=== PATIENT | female | born 1965 | race Caucasian/White ===

== ENCOUNTER 2021-07-10 17:45 | Observation (INO) | payer OTHER ==
[~2021-07-10] VITALS: Ht 170.2 cm; Wt 104.8 kg
[2021-07-11 09:24] VITALS: BP 107/61
--- NOTE | 2021-07-11 10:44 | NUR ---
Admission note on behalf of Maryan Tanner RN: "DEACON CAME INTO THE [facility] AT 2345 FROM ED ON A WHELLCHAIR. SHE WAS ADMITTED INTO 524A UNDER THE CARE OF DR. LO. SHE IS ALERT AND ORIENTED WITH SOME FORGETFULNESS. AMBULATES WITH AND SHE DENIES PAINS,SI/AVH/HI. LUNGS ARE CLEAR BS ACTIVE X4 QUADS. SHE IS CONTININIET OF BOWEL AND BLADDER. CALL TO THE HOSPITALIST MICH BONE FOR CONSULT AND GERALD FOR MEDICATION VERIFICATION. ZAMZAM IS RESTING CALM IN BED AT THE TIME. vITAL SIGN STABLE AT 96.3, 96% SAT, 74, 18, 120/74. WT @ 226LBS. SHE IS ON REGULAR DIET. REASOM FOR ADMISSION IS PATINAOMI GOING INTO PEOPLE HOUSES AND ALSO AGGRESSIVE. BED ISLOW, LOCKED AND AKARMED. Q12 MINUTES CHECKS ONGOING CONTUNE CARE."
[2021-07-11 13:44] LABS: CHOLESTEROL 225 mg/dL (<200); HDL CHOLESTEROL 49 mg/dL (>40); LDL CHOLESTEROL 129 mg/dL (<100); TC:HDL 4.6 Ratio (Not establshd); TRIGLYCERIDE 237 mg/dL (<150); VLDL 47 mg/dL (<40)
--- NOTE | 2021-07-11 16:47 | NUR ---
Meeting with patient and Dr. Montes. Patient had been in her room but willingly came to the office with the SW and Dr. Montes. Patient had been susan retirement in [place] due to wandering, combativeness, and entering random residences. The patient is not oriented to day and time. When patient was asked what month we were in, she responded with December. The patient remained adamant that it was December even though she was told it was . The patient reports being born in [place], [place]. When asked if she has brothers and sisters, she responded "not really".
--- NOTE | 2021-07-11 18:45 | NUR ---
PT ALERT AND ORIENTED TIMES FOUR. VSS. PT DENIES SI/HI/AH/VH/PAIN/SOA. PT INTERACTS WELLWITH STAFF LITTLE INTERACTIONS WITH PEERS. PT TOLERATES MEDS AND MEALS. PT UP AB JERED WITH STEADY GAIT. WILL COINTINUE TO MONITOR.
[2021-07-11 19:26] VITALS: BP 124/69
--- NOTE | 2021-07-12 00:36 | NUR ---
PATIENT SECLUSIVE STAYING TO HER ROOM. SHE IS AAOX4. PATIENT STATED THAT SHE DID NOT AGREE TO TAKE ANY MEDICATIONS BUT STATED THAT SHE WOULD FOR NOW. WHEN XITING THE ROOM THE PATIENT BEGAN HAVING A CONVERSATION WITH SOMEBODY SHE PRECEIVES IS PRESENT IN HER ROOM. SHE STATED THAT THEY WERE SUPPOSED TO MAKE SURE THAT SHE DID NOT HAVE PROBLEMS WITH MEDICATIONS. PATIENT IS ABLE TO AMBULATE UNDER HER OWN POWER. VSS. NO DISTRESS NOTED. ALL SAFETY PRECAUTIONS IN PLACE. WILL CONTINUE TO MONITOR FOR CHANGES IN PATIENT STATUS.
[2021-07-12 05:07] LABS: GLYCOHEMOGLOBIN (HGB A1C) 6.4 % (4.8-5.6)
[2021-07-12 09:39] VITALS: BP 113/67
[2021-07-12 09:42] VITALS: BP 113/72
--- NOTE | 2021-07-12 10:19 | NUR ---
Assess due to new admit to [facility] with dementia/behaviors. Hx schizophrenia, bipolar, htn. Attempt to visit this am, pt asleep in room, under covers so could not visualize wt status. Has 2 wts documented 180 lb vs 226 lb. Refused first meal yesterday, then 90% lunch. Lipid levels elevated, and borderline high A1C 6.4, no hx diabetes. On lipitor. Follow intake trends and wts weekly, otherwise presents low nutrition risk
--- NOTE | 2021-07-12 16:36 | NUR ---
PT ASSESSED AT START OF SHIFT. NO C/O S/I OR H/I. HAS BEEN CALM AND COOPERATIVE W/ CARES ALL SHIFT UNTIL NOW WHEN SHE WENT TO THE DAY ROOM AND WANTED TO HAVE COFFEE BUT WAS TOLD SHE HAD TO WAIT UNTIL DINNER. PT BECAME VERY UPSET YELLING LOUDLY, CALLING STAFF NAMES. ESCORTED BACK TO HER ROOM AND SHE WAS STILL UPSET BUT CALMED DOWN AFTER A FEW MINUTES.
[2021-07-12 19:21] VITALS: BP 105/60
--- NOTE | 2021-07-13 05:26 | NUR ---
Assumed care of pt at 1900. Pt calm et cooperative this shift. Took medications whole without difficulty. Ambulates ad jose d with steady gait. Isolated in room most of shift. VSWNL. Health assessment with no abnormalities noted at present time. Denies SI/HI at present time. Currently resting in bed with eyes closed. Will continue to monitor per unit protocol.
[2021-07-13 10:34] VITALS: BP 100/80
[2021-07-13 14:01] LABS: URINE BILIRUBIN NEGATIVE (Negative); URINE BLOOD TRACE (Negative); URINE CLARITY SL CLOUDY; URINE COLOR YELLOW; URINE GLUCOSE-RANDOM* NEGATIVE (Negative); URINE KETONES NEGATIVE (Negative); URINE NITRITE-REFLEX NEGATIVE (Negative); URINE PROTEIN (DIPSTICK) NEGATIVE (Negative); URINE SPECIFIC GRAVITY 1.015 (1.005-1.035); URINE UROBILINOGEN 0.2 E.U./dl (0.2-1.0)
[2021-07-13 14:14] LABS: URINE LEUKOCYTES-REFLEX 3+ (Negative)
[2021-07-13 14:53] LABS: SQUAMOUS >10 Many /LPF (0-3); URINE WBC-REFLEX >25 Many /HPF (0-5)
[2021-07-13 14:54] LABS: CASTS None Seen /LPF (None Seen); CRYSTALS None Seen /LPF (None Seen); URINE RBC 1-2 Rare /HPF (NONE SEEN)
--- NOTE | 2021-07-13 16:27 | NUR ---
Patient is alert and oriented x2, sat in the dining room watching TV, attend group, good appetite. patient walk with no walker or assisting device. Void per toilet, had a bm yesterday, tylenol given for knee pain. patient is calm, cooperative and pleaseant.
[2021-07-13 19:46] VITALS: BP 117/52
--- NOTE | 2021-07-14 05:09 | NUR ---
Assumed care of pt at 1900. Pt calm et cooperative this shift. Took medications whole without difficulty. Ambulates the halls ad jose d with steady gait. Isolated in room most of shift. VSWNL. Health assessment with no abnormalities noted at present time. Denies SI/HI at present time. Currently resting in bed with eyes closed. Will continue to monitor per unit protocol.
--- NOTE | 2021-07-14 08:28 | NUR ---
RESUMMED CARE FROM OVERNIGHT SHIFT THIS AM, PATIENT SITTING IN DAYROOM QUIET. PATIENT ALERT ORIENTED TIMES 3-4 PATIENT ATE BREAKFAST TOOK MEDICATION WITHOUT INCIDENCE. PATIENT DENIES SI/HI/AH/VH AT PRESENT PATIENTS ABDOMEN SOFT BOWEL SOUNDS PRESENT. PATIENT DENIES DEPRESSION OR ANXIETY PATIENTS AFFECT FLAT DOES NOT INTERACT WITH OTHER PATIENTS. WILL CONTINUE TO MONUIITOR PATIENT FOR SAFETY AND BEHAVIORS.
[2021-07-14 09:02] VITALS: BP 105/72
[2021-07-14 09:20] VITALS: BP 92/56
--- NOTE | 2021-07-14 09:26 | H ---
[facility] [place] [place] [address] HISTORY AND PHYSICAL Name: GLADYS BAHENA Room #: 524A-A ADM IN M.R.#: [id number] Admission: 07/10/21 Attend Phys: Adam Montes DO Discharge: Date of : 61 Report #: [id number] THIS REPORT FOR: cc: NO FAMILY PHYSICIAN or PCP NO FAMILY PHYSICIAN or PCP Adam Montes DO ~ DATE OF SERVICE: 07/11/2021 INPATIENT PSYCHIATRIC EVALUATION ATTENDING PSYCHIATRIST: Adam Montes DO. MEDICAL CONSULTANTS: Anita Castillo APRN and Jaun Dao MD and his hospitalist team. SOURCES OF INFORMATION: Screen from [facility], records from Emergency Room in [facility] in [place], [place], interview with the patient, collateral from durable power of goodwill representative, Martir Flaherty. HISTORY OF PRESENT ILLNESS: This is a 56-year-old female, single, but lives with a gentleman for the last 15 years or so. The patient was sent out from [facility] in [place]. Apparently, she is at the Emergency Room there at [facility], but had recently been in custody at the [facility] [place]. Per report, the patient has a history of Alzheimer's dementia, so brought into custody due to disorientation, agitation, combativeness, and engage in unsafe behaviors, wandering and entering residences not belonging to her. At [place] screening She is oriented x [address]. Her poor eye contact was observed, is having difficulty with recall and monotone. She had actively having features of word repetition. She said the screener did not want her to strain, rest up and eat well. "I do not know how I got here, I do not think they want me in the area, all I was trying to do was go somewhere where I can fit in. I live in [address] and my house has roof off of it and the house I ended up out with the wrong house. 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 She was unable to recall her age. She was in [facility] in 2019. At that time, she was not diagnosed with schizophrenia with a schizoaffective picture. Apparently, her caregiver and DPOA, Martir Flaherty, is a lot for her. 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 She is not currently in services with [facility] she [facility]. The patient denied medical history. ALLERGIES ARE TO CODEINE. [facility] screen diagnosis was schizoaffective disorder, bipolar type. Evidently, she was seen again at [facility] [place] [facility] and she believes it was [address] [address] HISTORY AND PHYSICAL Name: GLADYS BAHENA Room #: 524A-A ADM IN ..#: [id number] Admission: 07/10/21 Attend Phys: Adma Montes, Discharge: Date of : 61 Report #: [id number] and she is in a [facility] apartment building. Then, states Janet is the president, but the Clint could have his inauguration soon. Evidently, she was combative during transfer to hospital, but the patient had been pleasantly confused since arrival. From ER notes, apparently she has been in custody for several weeks despite behavior, confusion and transported to the medical facility. REVIEW OF SYSTEMS: CONSTITUTIONAL: Negative. EYES: Negative. EARS, NOSE, THROAT: Negative. RESPIRATORY: Negative. CARDIOVASCULAR: Negative. GASTROINTESTINAL: Negative. GENITOURINARY: Negative. HEME/LYMPH: Negative. ENDOCRINE: Negative. IMMUNOLOGIC: Negative. MUSCULOSKELETAL: Negative. INTEGUMENTARY: Negative. NEUROLOGIC: Confusion. Psych meds noted to be 50 mg of Seroquel in the afternoon and 50 mg of Seroquel in the morning, metoprolol succinate 100 mg extended release daily and Effexor extended release 75 mg daily. PHYSICAL EXAMINATION: Grossly negative. LABORATORY DATA: From [facility], white count 8.2, H and H 14.3 and 42.1, platelet count 290. Urinalysis showed trace blood, 1+ leukocyte esterase, I do not see any bacteria mentioned. Electrolytes: Sodium 137, potassium 4.4, chloride 103, bicarbonate 29.5, osmolality 274, BUN 11, creatinine 0.73, glucose 117, calcium 9.0, albumin 3.2, total protein 7.0, alkaline phosphatase 190 which is high, AST 26, ALT 52, total bilirubin 0.1. EGFR 82. Acetaminophen negative. Salicylate was 2.0, which is low. Alcohol negative. Urine drug screen negative. Weight 113.6 kilos, BMI 42.4. test negative. SARS-CoV-2 PCR negative. Here at [facility], review of additional labs, triglycerides 237, cholesterol 225, LDL 129, HDL 49. COVID-19 test was negative. PHYSICAL EXAMINATION: VITAL SIGNS: Today, temperature 37.1, pulse 93, respirations 20, BP 124/69. Her weight was 102.512 kilos, BMI 35.4. GENERAL: Well-developed, unkempt female, in shirt and scrubs. MENTAL STATUS EXAMINATION: Well-developed, somewhat ill-appearing, older than [facility] [address] [place] [address] HISTORY AND PHYSICAL Name: GLADYS BAHENA Room #: 524A-A ADM IN ..#: [id number] Admission: 07/10/21 Attend Phys: Adam Montes DO Discharge: Date of : 61 Report #: [id number] stated age appearing female. Attention easily distractible. Concentration poor. Speech normal in rate. Thought process: Linear and goal directed. Thought content, very disorganized, difficult to obtain ____ particular subject matter. She did want to hear the name, Martir and did not regard him as a support person. It almost sounded like an nemesis. Memory not formally tested, suspect impaired. Mood and affect constricted, congruent. Denied SI, HI. Denied auditory or visual type hallucinations. Denied helplessness, hopelessness. Insight, judgment impaired. Fund of knowledge well below average. FORMULATION: A 56-year-old female transferred from [facility] following [place]. DIAGNOSES: Schizoaffective disorder, bipolar type, recurrent by history, suspected underlying major neurocognitive disorder. The patient's medical morbidities include possible UTI, Keflex started; hypertension; GI prophylaxis. PLAN: The patient is incapacitated. Her DPOA is enacted due to severe degree of psychosis, cognitive impairment. Anyways, in addition, the patient's incapacitation following she is admitted to Geriatric Psychiatry, evaluated, stabilized. Regarding her medication regimen, I increased her Seroquel to 125 mg at bedtime. I scheduled Seroquel 50 mg at 9:00 a.m. and 3:00 p.m. I discontinued venlafaxine. She is on metoprolol succinate 100 mg daily and cephalexin 500 mg b.i.d. Urine culture and sensitivity has been ordered. ESTIMATED LENGTH OF STAY: 10-14 days. We will evaluate and stabilize. Hospitalist is consulted. STRENGTHS: She is insured as a DPOA. WE[place]NESSES[place] a placement. I should add I did speak to the DPOA today, he does not own a place. Length of mental illness, sounds like, at least actually more than a decade, at least 15-20 year range. Time spent on this case at least 45 minutes. <ELECTRONICALLY SIGNED> By: Adam Montes DO 07/14/21 0926 [id number] 05 Adam Montes DO /nt
--- NOTE | 2021-07-15 05:10 | NUR ---
Assumed care of pt at 1900. Pt calm et cooperative this shift. Took medications whole without difficulty. Ambulates the halls ad jose d with steady gait. Isolated in room most of shift. VSWNL. Health assessment with no abnormalities noted this shift. Denies SI/HI at present time. Currently resting in bed with eyes closed. Will continue to monitor per unit protocol.
[2021-07-15 07:35] VITALS: BP 106/59
[2021-07-15 08:45] VITALS: BP 106/59
--- NOTE | 2021-07-15 15:57 | NUR ---
Assumed pt care from overnight shift this am. Client was fussy and agitated during this time, and presented confused and disoriented. Client was reoriented to environment, and was oriented to person only at this time. Client presented with flight of ideas, with scattered thoughts and no coherency with thoughts, talking about several different theories she believed in which she was being monitored. Staff was unable to follow client's train of thought at this time, as client would continue to ramble, but would not make coherent statements despite redirection. Client stated to staff, "why are you asking me these questions- every day we have to answer if we're depression, hallucinating, or something like that- why do I have to answer this-give some variety in this- why don't you know the answer." Staff explained to pt that these questions were necessary to ask, Pt stated "well I'm not suicidal or trying to kill anyone" and started to ramble about people that were living by her, though staff could not make out context of delusion. Pt denied depression and anxiety once asked further. Denied pain, stating, "well I'm here, so I don't have pain." Pt lung sounds clear. Pt bowel sounds active. Last BM 07/15/21. Noted delusions continued despite direction. Pt de-escalated in group as pt started to shout in group. Voluntary room time used, as well as therapeutic communication. Pt results for covid testing came back positive. Providers Javi and Simon respectively notified and pt quarantined. New covid test done and sent to lab. Pt intially resistant, but staff able to convince pt after convincing pt and covid was not a conspiracy theory. Pt asked to stay in room several times during this shift due to isolation precautions. Pt took isolation cart, and put lunch tray on isolation cart, and wheeled it to staff, stating and yelling that she wanted new lunch. Pt de-escalated at this time and asked to return to room. Different dinner orders placed to help accomodate pt. No other concerns at this time. Awaiting covid testing results.
[2021-07-15 19:15] VITALS: BP 142/94
[2021-07-15 20:00] VITALS: BP 142/94
[2021-07-15 21:40] VITALS: BP 150/87
--- NOTE | 2021-07-16 01:54 | NUR ---
PATIENT WAS MOVED TO ROOM 361 ON 3W D/T POSITIVE COVID PCR RESULT X 2. DR Rai IS STILL GOING TO SEE PATIENT AND WAS TOLD NOT TO TRANSFER OR DC PATIENT IN COMPUTER D/T SHE IS STILL PSYCH PATIENT. PATIENT WAS A/0X1. SHE TOOK HER MEDS WHOLE WITH WATER. SHE DENIES PAIN. SHE WAS CALM AND COOPERATIVE. SHE WAS RESISTANT AT FIRST AND DID NOT WANT TO MOVE TO ANOTHER FLOOR BUT CALMED AND WENT PEACEFULLY. PATIENT HAS DISORGANIZED THINKING AND HARD TO UNDERSTAND WHEN SHE TALKS. THE SHAUN OF HER VOICE IS UP AND DOWN AND SOMETIMES SHE SPEEDS UP AND SLOWS DOWN. OCCASIONALLY SHE HAS PRESSURED SPEECH AND SOMETIMES SHE TALKS LIKE A LITTLE GIRL. HER THOUGHTS ARE DISORGANIZED AND HARD TO FOLLOW. PATIENT WAS TRANSPORTED TO 3W BY ALEKSANDRA YOUNG BY [facility] WITH A N95 MASK ON. TELEPHONE RN REPORT GIVEN OVER PHONE TO CASSIE CHEN. PATIENT TRANSFERRED AROUND 2200.
--- NOTE | 2021-07-16 05:36 | NUR ---
PT TRANSFERRED FROM [facility] AFTER 2 POSITIVE COVID PCR TESTS 07/15. PT IS ASYMPTOMATIC WITH EXCEPTION OF A SLIGHT OCCASIONAL COUGH. PT IS IN NO VISIBLE DISTRESS. ARRIVED TO ROOM 361 AROUND 2140. VSS, ON ROOM AIR. PT WITH DISORGANIZED THOUGHTS, A&O TO SELF AND KNOWS SHE IS IN THE HOSPITAL. PROVIDED WITH MAGAZINE AND NEWSPAPER TO READ PER PT REQUEST. PT FORGETS THAT SHE IS UNABLE TO COME OUT OF HER ROOM AT THIS TIME, BUT IS EASILY REDIRECTABLE. WILL CONTINUE TO OBSERVE FOR CHANGES.
[2021-07-16 08:02] VITALS: BP 94/60
[2021-07-16 12:33] LABS: HEMATOCRIT 37.4 % (37.0-47.0); HEMOGLOBIN 12.6 gm/dL (12.0-15.0); MCH 28.3 pg (26.0-34.0); MCHC 33.8 g/dL (28.0-37.0); MCV 83.9 fL (80.0-100.0); RBC 4.46 mil/uL (4.20-5.00); RDW 14.2 % (10.5-14.5)
[2021-07-16 12:49] LABS: ALBUMIN 2.8 g/dL (3.4-5.0); ANION GAP 8 mmol/L (7-16); BUN 11 mg/dL (7-18); CALCIUM 8.1 mg/dL (8.5-10.1); CHLORIDE 104 mmol/L (98-107); CO2 28 mmol/L (21-32); CREATININE 0.6 mg/dL (0.6-1.0); GLUCOSE 144 mg/dL (74-106); POTASSIUM 4.2 mmol/L (3.5-5.1); SGOT 23 U/L (15-37); SGPT 44 U/L (30-65); SODIUM 140 mmol/L (136-145); TOTAL BILIRUBIN < 0.1 mg/dL (0.2-1.0); TOTAL PROTEIN 5.8 g/dL (6.4-8.2)
--- NOTE | 2021-07-16 16:01 | NUR ---
CARE ASSUMED THIS AM, PT ALERT TO SELF, REDIRECTABLE. PT FOLLOWS COMMANDS AND HAS BEEN CALM MOST OF DAY. UP AD JERED TO BATHROOM. ON ROOM AIR, NO SIGNS OF DISTRESS. DENIES ANY NEEDS AT MOMENT, WILL CONTINUE TO MONITOR.
[2021-07-16 19:50] VITALS: BP 116/76
--- NOTE | 2021-07-17 05:18 | NUR ---
Patient is alert to self this shift. Patient is on enhanced precaustions. Patient is on neither oxygen/ tele at this time. Patient is continent of both bowel and bladder. Patient gets up adlib and is steady on her feet. Patient has no skin issues to report and no IV's at this time. Patient will continue to be monitored.
[2021-07-17 07:22] VITALS: BP 130/86
--- NOTE | 2021-07-17 08:44 | NUR ---
07/17/2021 - Family meeting for patient with DPOA (Martir Flaherty), Dr. Montes and MIKI. Dr. Montes reviewed the patient's level of need. Dr. Montes and the SW also explained to Martir that the patient has continuously stated that she does not want to return to him or the home. Martir reported that the patient does want to return. However, Martir became open to the patient going to a shelter as he is concerned that the patient will become too much for him to keep safe. Martir does not want the patient to continuously be hospitalized or put in correction for the behaviors she has demonstrated. Martir stated the patient was previously at a home in [facility] and that was a nice place. The SW will submit a referral for Medicaid. The SW and Dr. Montes will contact Martir tomorrow at 2:00pm so that Martir's son will be available to assist with processing information for the DPOA.
--- NOTE | 2021-07-17 08:52 | NUR ---
Email for Medicaid Screening sent to [employer].
--- NOTE | 2021-07-17 11:32 | NUR ---
SW reviewed chart and spoke with nursing and hospitalist. Pt was transferred to from [facility] unit on Friday, 07/15. Pt had two positive COVID PCR tests. Pt placed in Enhanced Isolation. Pt is afebrile and on room air. Pt with hx Alzheimer's, bipolar and schizophrenia. Pt was transferred to [facility] from [facility] in [place], [place]. Pt has been living with her DPOA Martir Flaherty. [facility] SW team is in communication with Martir regarding discharge plan. Pt will need placement. SW is available to assist as needed.
--- NOTE | 2021-07-17 12:21 | NUR ---
PT HAD A SHOWER TODAY, NEW CLOTHES OFFERED TO PT. BED CHANGED. PT HAS BEEN CALM AND FOLLOW DIRECTION. COOPERATIVE WITH CARE. CONTINUE TO BE ON ROOM AIR, NO SIGNS OF DISTRESS. GOES TO THE BATHROOM INDEPENDENTLY. DENIES ANY NEEDS AT MOMENT. WILL CONTINUE TO MONITOR.
[2021-07-17 19:05] VITALS: BP 115/72
--- NOTE | 2021-07-18 06:25 | NUR ---
Patient is alert and oriented x2. Patient is on enhanced precautions and on room air. Patient is up adlib and is continent with both bowel and bladder. patient has been calm, cooperative, and good humored with this RN this shift. Patient reports to this RN that she is bored but none of this RNs suggestions to alleviate boredom are of any interest. Patient has no iv access at this time. Patient will continue to monitored.
[2021-07-18 08:13] VITALS: BP 98/64
--- NOTE | 2021-07-18 09:23 | NUR ---
Followup: pt continues with [facility] care but on acute unit due to positive covid dx. Eating well, 100% of meals. Remains low nutrition risk
[2021-07-18] MEDS ORDERED: LIPITOR10 MG PO (11:31)
[2021-07-18] MEDS ORDERED: SEROQUEL 100 M100 M1 PO ×2 (11:32→11:33)
[2021-07-18] MEDS ORDERED: SEROQUEL 25 MG25 M1 PO (11:33)
[2021-07-18] MEDS ORDERED: SENNA8.8 MG/5 M PO (11:34)
--- NOTE | 2021-07-18 12:54 | NUR ---
PT IS PROGRESSING TOWARDS CARE. ALERT AND ORIENTED TO PERSON. PLACE. APPROPRIATE AND CALM. FOLLOWS COMMANDS AND IS REDIRECTABLE. INDEPENDENT TO BATHROOM AND FEEDS HER SELF. GROOM IS APPROPRIATE. FALL AND SAFETY PRECAUTIONS IN PLACE. WILL CONTINUE TO MONITOR.
[2021-07-18 13:53] VITALS: BP 98/64
--- NOTE | 2021-07-18 14:41 | NUR ---
Family meeting via phone. Present were MIKI (Zenobia and this MIKI), Dr. Montes (for end of meeting), Martir Reynold ([facility]) and Mr. Flaherty's friend assisting Mr. Flaherty. Mr. Flaherty would like for the patient to return home. He expressed that the more he thinks about it, the more he wants her to return. Zenobia gave an update for the patient, stating the patient has been cooperative and has not had any negative symptoms from being diagnosed with COVID. The patient will be discharged tomorrow. Transportation will be arranged by [facility]. Zenobia will also work on arranging home health for the patient to assist the patient and Mr. Flaherty. The SW will enter the pharmacy ([facility]) into the discharge and will also schedule a follow-up appointment with the patient's primary care physician, Dr. Acacia Rawls ([phone]). Mr. Flaherty reported to being able to remember to administer medication to the patient timely and provide supervision. The SW asked Mr. Flaherty what are the steps he will take to keep himself and the patient safe should the patient stop taking medication again. Mr. Flaherty stated he is not concerned with his safety but rather's the patient. Mr. Flaherty did inquire about whether the patient wanted to return to his home as the patient has previously acknowledged not wanting to return. The question will be asked to the patient and will follow up with Mr. Flaherty. [employer] entered the meeting regarding the pending Medicaid application. Mr. Flaherty stated they were not in need of the application.
--- NOTE | 2021-07-19 13:34 | D ---
[facility] [place] [address] DISCHARGE SUMMARY Name: GLADYS BAHENA Room #: 361-P [facility].#: [id number] Admission: 07/10/21 Attend Phys: Adam Montes DO Discharge: 07/18/21 Date of : 61 Report #: [id number] THIS REPORT FOR: cc: NO FAMILY PHYSICIAN or PCP NO FAMILY PHYSICIAN or PCP Adam Montes DO ~ DATE OF SERVICE: 07/18/2021 INPATIENT GERIATRIC PSYCHIATRY DISCHARGE SUMMARY SPECIAL NOTE: I am discharging the patient from Geriatric Psychiatry Service. This was done today at the request of case management and hospital administration as the waiver that was thought to apply to keep the patient in a medical bed does not apply to psychiatric patients. That was informed. The patient is being admitted to Dr. Arana's service from the hospitalist service today. ATTENDING PSYCHIATRIST: Adam Montes DO SERVICES TECH: Adam Arana MD DISCHARGE DIAGNOSES: Major neurocognitive disorder, likely due to early onset Alzheimer's disease with behavioral disturbance, improved. ADDITIONAL PSYCHIATRIC COMORBIDITIES: Schizoaffective disorder, bipolar type. MEDICAL COMORBIDITIES: Obesity; hypertension; hyperlipidemia; UTI, treated with Keflex. DISCHARGE DISPOSITION: Again, the patient is discharged to [facility] medical unit. DIET: Recommending a low-calorie diet for the patient with a BMI of 37.2. DISCHARGE MEDICATIONS: As follows: 125 mg of Seroquel at 9:00 a.m. and 3:00 p.m. and 225 mg at bedtime for schizoaffective disorder and impulsivity, atorvastatin 10 mg oral daily for hyperlipidemia, senna 17.6 grams p.o. b.i.d. for bowel motility. ACTIVITY LEVEL: As tolerated. Recommended 24-hour assistance to the patient. LABORATORY DATA: CBC from 07/16 was within normal limits. White count 4.0, H and H 12.2 and 37.4, platelet count 192. Coags: D-dimer 0.8 on 07/16. Sodium 140, potassium 4.2, chloride 104, bicarbonate 28, anion gap 8, BUN 11, creatinine 0.6, estimated GFR 103. A1c is 6.3, calcium 8.1, ferritin 99, total bilirubin less than 0.1, AST 23, ALT 21, alkaline phosphatase 157, CRP less than 2, total protein 5.8, albumin 2.8. Lipids: High triglycerides 237, cholesterol [address] [address] DISCHARGE SUMMARY Name: GLADYS BAHENA Room #: 361-P [facility] MMadison#: [id number] Admission: 07/10/21 Attend Phys: Adam Montes DO Discharge: 07/18/21 Date of : 61 Report #: [id number] 225, LDL 129, HDL 49. Urinalysis from 07/13 had trace blood, 3+ leukocyte esterase, lymphocytes, squamous cells, moderate bacteria. Urine culture grew normal kristie. Radiology this admission: Chest x-ray, 07/16 showed bilateral interstitial lung changes, most suggestive mild interstitial pneumonitis and this was done for becoming COVID positive. REASON FOR ADMISSION: A 56-year-old obese female, who is habitating with a longtime friend, DPOA Martir Flaherty in [facility], was sent out from the [facility], and after [facility] several weeks [facility] for what sounds like breaking, entering, trespassing, and combativeness with law enforcement, apparently the patient had become delusional and walked off around the community. She has previously been hospitalized in the [facility], admission in 2019. HOSPITAL COURSE: The patient was initially admitted to Geriatric Psychiatry Unit and I helped her there physically, and then this past week on 07/15, the patient tested positive on the morning and then positive on repeat testing for COVID-19 and she was admitted to [address] [place] [address] for medical isolation. The patient actually has done well in medical isolation, not completely, but fairly oriented to place, generally to time. She actually became open to fpc placement. Her DPOA, Martir Flaherty, wants her to return to live with him. Unfortunately, there are limited options as the patient is a [place] resident and she would be a difficult placement at this point. So, plan at present discharge to the hospitalist service for her to return to her DPOA, Martir. DISCHARGE PHYSICAL EXAMINATION VITAL SIGNS: Temperature 36.3, pulse 98, respirations 20, BP 111/65, O2 sat 92%, weight 104.469 kilos. MUSCULOSKELETAL: Seated in lorenzo chair in hospital room. Unkempt appearance. Still in COVID isolation. MENTAL STATUS EXAMINATION: Well-developed, unkempt, obese female, appearing stated age. Attention and concentration fair. Speech: Normal rate, rhythm, and tone. Thought process: Linear and goal directed. Thought content: Focused on the present and desiring discharge. Denied suicidal or homicidal ideation; auditory, visual, or tactile hallucinations. Mood and affect both congruent, euthymic today, fair range. Insight and judgment limited. Fund of knowledge below average. Prognosis for the patient is guarded given 15-year history of schizoaffective disorder and now in early dementia. <ELECTRONICALLY SIGNED> By: Adam Montes, 07/19/21 [id number] Adam Montes DO /nt
== END 2021-07-18 15:05 | disposition short-term general hospital (02) ==
LOC: SBH → 3W 23:45 → SBH 23:45 → 3W 07-15 21:40
PROVIDERS: Hospitalist; Internal Medicine; Nurse Practitioner Family; ADMIT Psychiatry & Neurology Psychiatry; ATTEND Psychiatry & Neurology Psychiatry
DX: U07.1 COVID-19 (principal); F25.0 Schizoaffective disorder, bipolar type; F29 Unspecified psychosis not due to a substance or known physiological condition; G30.9 Alzheimer's disease, unspecified; F02.80 Dementia in other diseases classified elsewhere, unspecified severity, without behavioral disturbance, psychotic disturbance, mood disturbance, and anxiety; I10 Essential (primary) hypertension; N39.0 Urinary tract infection, site not specified; E78.5 Hyperlipidemia, unspecified; E66.9 Obesity, unspecified; Z68.36 Body mass index [BMI] 36.0-36.9, adult; Z79.899 Other long term (current) drug therapy; Z88.5 Allergy status to narcotic agent
CPT/HCPCS: 10779; 10880

== ENCOUNTER 2021-07-10 18:14 | Emergency (ER) | payer OTHER ==
[~2021-07-10] VITALS: Ht 167.6 cm; Wt 81.7 kg
[2021-07-10 23:42] VITALS: BP 135/66
== END 2021-07-10 23:46 ==
LOC: ER 18:14
PROVIDERS: Emergency Medicine
DX: F02.80 Dementia in other diseases classified elsewhere, unspecified severity, without behavioral disturbance, psychotic disturbance, mood disturbance, and anxiety (principal); Z20.822 Contact with and (suspected) exposure to COVID-19

== ENCOUNTER 2021-07-18 15:01 | Observation (INO) | payer OTHER ==
[~2021-07-18] VITALS: Ht 167.6 cm; Wt 104.3 kg
[~2021-07-18 15:01] MED LIST: LIPITOR10 MG PO; SENNA8.8 MG/5 M PO; SEROQUEL 100 M100 M1 PO; SEROQUEL 25 MG25 M1 PO
--- NOTE | 2021-07-18 15:24 | NUR ---
Phone call to Dr. Rawls's office. Scheduled appointment for 07/26/2021 at 10:15AM. Inquired about psychiatric services. Was informed that there are telehealth services available in the office. SW was further informed that Dr. Rawls will follow up with this need at the 07/26/2021 appointment.
--- NOTE | 2021-07-18 16:44 | NUR ---
MIKI reviewed chart and spoke with nursing and attending physician. Pt remains in Enhanced Isolation due to COVID. Pt is afebrile and on room air. Pt moved to room 351. Family meeting held this afternoon with pt's DPOA, Martir Flaherty and family friend. Case reviewed with [facility] MIKI, psychiatrist-Dr. Montes and MIKI. Discharge home is anticipated for tomorrow. Martir states that he is wanting pt to discharge home at this time. He does not want to consider placement. [employer] had started [place] Medicaid application. MIKI discussed HH services upon discharge. Pt's DPOA is agreeable. No preference voiced of HH agency. Pt's PCP is Dr. Acacia Rawls in [place], [place]. Pt uses [facility]. MIKI confirmed pt's home addreess: [address] [place] [address]. MIKI explained that pt will be transported via ambulance service. Family friend asked about pt staying longer to ensure she was not going to expose Martir to COVID. Physician explained that pt is medically stable for discharge and is not exhibiting any COVID symptoms. MIKI explained that information and education will be sent home with pt for family to review. Recommendation made for family/friends to wear N95 masks and goggles and to limit close contact. Martir verbalized understanding. MIKI left voice message for [facility] to determine if they are able to take pt on service. MIKI spoke with [facility] regarding long distance ambulance transportation. MIKI Faxed PCS form for review, as it will most likely be coordinated with another ambulance provider. Transport is about 235 miles away from [facility]. MIKI spoke with pt via phone to notify of discharge. Pt states she is not wanting to discharge back to [place], [place]. MIKI explained to pt that we will discuss tomorrow with attending physician. MIKI updated pt's nurse. MIKI is following to assits as needed with discharge planning.
--- NOTE | 2021-07-18 18:03 | NUR ---
PT READMITTED TO ROOM 351. ALL BELOGNINGS TRANSFERRED. ANTICIAPTATING FOR DISCHARGE TOMORROW.
[2021-07-18 19:19] VITALS: BP 111/65
--- NOTE | 2021-07-18 22:32 | NUR ---
PT RESTING IN BED, AWAKENS FOR ASSESSMENT. PT PROVIDED MEAL TRAY. INDEP WITH AMBULATION.
[2021-07-19 07:44] VITALS: BP 131/98
[2021-07-19 07:47] VITALS: BP 131/98
[2021-07-19 11:47] VITALS: BP 131/98
--- NOTE | 2021-07-19 11:51 | NUR ---
DISCHARGE NOTE: MIKI reviewed chart and spoke with nursing and attending physician. Pt remains in Enhanced Isolation due to COVID. Pt is afebrile and on room air. Pt is medically stable for disharge home today. MIKI contacted [facility] to arrange long distance ambulance transportation to [place], [place]. Ambulance transportation scheduled for 1500. MIKI notified Lorena at [facility] that pt is COVID positive. MIKI spoke with pt's significant other/DPOA, Martir, via phone to discuss discharge plan. Martir is aware and agreeable with discharge plan. MIKI discussed that HH RN services will be arranged if a HH provider is able to accept pt on service. There are three HH agencies that see pts in [place], [place]: [facility], [facility] and [facility]. MIKI left another message for [facility]. MIKI spoke with Lorenza in intake at [facility]. Faxed HH referral. MIKI [facility] voice [facility]. Pt's DPOA states he will call pt's PCP, Dr. Rawls with any questions or concerns after discharge. Follow up appt with PCP scheduled for 07/26/2021 at 1015. This info placed in pt's discharge summary. Awaiting final discharge ppwk at this time. MIKI to fax discharge orders of a HH agency is able to accept pt on service. MIKI updated pt's nurse and attending physician regarding transportation time. No additional SW needs identified at this time. [facility] is available to assist should needs arise.
[2021-07-19 12:00] VITALS: BP 141/79
[2021-07-19 14:37] VITALS: BP 131/98
--- NOTE | 2021-07-19 14:59 | NUR ---
DISCHARGE NOTE: ALERT AND ORIENTED X2. CONTINUE TO BE ON ROOM AIR. NO IV ASSESS. ALL BELINGINGS WITH PT. DARRYL (DPOA) AWARE OR DISCHARGE, WENT THROUGH DISCHARGE INSTRUCTION AND NEW MEDS PT WILL BE TAKING.SCRIPTS WITH AMBULANCE STAFF TO GIVE TO DARRYL. DISCHARGE WITNESS BY MELANIE MATTHEWS
== END 2021-07-19 15:18 | disposition home or self-care (01) ==
LOC: 3W 15:01
PROVIDERS: ADMIT Hospitalist; ATTEND Hospitalist
DX: F03.90 Unspecified dementia, unspecified severity, without behavioral disturbance, psychotic disturbance, mood disturbance, and anxiety (principal); F98.9 Unspecified behavioral and emotional disorders with onset usually occurring in childhood and adolescence; F25.0 Schizoaffective disorder, bipolar type; I10 Essential (primary) hypertension; Z88.5 Allergy status to narcotic agent; Z79.899 Other long term (current) drug therapy